=== PATIENT | male | born 1955 | race Two or more races ===

== ENCOUNTER 2017-07-01 14:58 | Outpatient (CLI) | payer OTHER | END 2017-07-01 16:12 | disposition home or self-care (01) | LOC: LAB 14:58 | DX: N20.0 Calculus of kidney (principal); Z01.810 Encounter for preprocedural cardiovascular examination; Z01.812 Encounter for preprocedural laboratory examination ==

== ENCOUNTER 2017-07-15 14:57 | Inpatient (IN) | payer OTHER ==
[~2017-07-15] VITALS: Ht 182.9 cm; Wt 84.4 kg
[2017-07-21] MEDS ORDERED: ULTRACET PO (11:03)
[2017-07-21] MEDS ORDERED: CIPRO500 MG PO (11:04)
[2017-07-21] MEDS ORDERED: DULCOLAX STOOL100 MG PO (11:04)
== END 2017-07-21 13:17 | disposition home or self-care (01) | DRG 660 ==
LOC: ER 14:57 → SURH 17:18
PROC: 0TC18ZZ Extirpation of Matter from Left Kidney, Via Natural or Artificial Opening Endoscopic (ICD-10-PCS; principal; 2017-07-15)
PROC: 0T778DZ Dilation of Left Ureter with Intraluminal Device, Via Natural or Artificial Opening Endoscopic (ICD-10-PCS; 2017-07-15)
PROC: 0T9130Z Drainage of Left Kidney with Drainage Device, Percutaneous Approach (ICD-10-PCS; 2017-07-15)
PROC: BT1FZZZ Fluoroscopy of Left Kidney, Ureter and Bladder (ICD-10-PCS; 2017-07-15)
DX: N13.2 Hydronephrosis with renal and ureteral calculous obstruction (principal)